=== PATIENT | female | born 1985 | race African-American/Black ===

== ENCOUNTER 2018-06-28 15:36 | Emergency (ER) | END 2018-06-28 18:15 | disposition home or self-care (01) ==

== ENCOUNTER 2018-11-19 15:47 | Emergency (ER) | payer BC ==
[~2018-11-19] VITALS: Ht 165.1 cm; Wt 67.9 kg
[~2018-11-19 15:47] MED LIST: HYDR-4011 PO; IBUP-1542 PO; METR500T PO
[2018-11-19 15:53] VITALS: Ht 165.1 cm; Wt 67.9 kg
--- NOTE | 2018-11-19 18:25 | ERD ---
ER Documentation Chief Complaint Chief Complaint cough, runny nose, fever & body aches x1wk HPI 33-year-old female with no past medical surgical history who presents to ED for evaluation of cough, runny nose, fever and body aches for 1 week. Cough is nonproductive. Patient's was seen at her [facility] noticed with mild respiratory distress with a temperature of 101 and sent to ED further evaluation to rule out underlying bacterial infection. 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 She otherwise denies chest pain, shortness of breath, dyspnea, nausea vomiting, abdominal pain, urinary symptoms. At time of evaluation patient is nontoxic-appearing, speaking in full sentences. Triage vital signs notable for temperature of 100.7 with a pulse of 100. ROS All systems reviewed and are negative except as per history of present illness. Medications Home Meds Active Scripts Acetaminophen* (Tylophen*) 500 Mg Capsule, 1 CAP PO Q6H PRN for PAIN AND OR ELEVATED TEMP, #20 CAP Prov:JUAN COBIAN PA-C 11/19/18 Hydrocodone/Acetaminophen ([place] 5-325 Tablet) 1 Each Tablet, 1 TAB PO Q6H PRN for PAIN, #15 TAB Prov:AME SHEIKH DO 06/28/18 Ibuprofen* (Ibuprofen*) 600 Mg Tablet, 600 MG PO Q6H PRN for PAIN, #30 TAB Prov:AME SHEIKH DO 06/28/18 Metronidazole* (Flagyl*) 500 Mg Tablet, 500 MG PO BID for bacterial vaginosis for 7 Days, #14 TAB Prov:AME SHEIKH DO 06/28/18 Allergies Allergies: Coded Allergies: sulfamethoxazole (Verified Allergy, Mild, swelling neck, 11/19/18) trimethoprim (Verified Allergy, Mild, swelling neck, 11/19/18) PMhx/Soc History of Surgery: Yes (, R breast sx) Hx Alcohol Use: Yes Hx Substance Use: No Hx Tobacco Use: Yes Smoking Status: Current some day smoker FmHx Family History: No diabetes, No coronary disease, No other Physical Exam Vitals Vital Signs Date Temp Pulse Resp B/P (MAP) Pulse Ox O2 O2 Flow FiO2 Time Delivery Rate 11/19/18 100.7 100 18 118/60 97 15:53 (79) Physical Exam I have reviewed the triage vital signs. Const: Well nourished, well developed, appears stated age Eyes: PERRL, no conjunctival injection HENT: NCAT, Neck supple without meningismus CV: RRR, Warm, well-perfused extremities RESP: few scattered rales, Unlabored respiratory effort GI: soft, non-tender, non-distended, no masses MSK: No gross deformities appreciated Skin: Warm, dry. No rashes Neuro: grossly non focal Psych: Appropriate mood and affect. Procedures/MDM The patient's clinical presentation is very consistent with an acute viral syndrome. Doubt etiology warranting further emergency department management. No evidence of pneumonia as xray of chest without consolidation. The patient is well-appearing without respiratory distress. Normal oxygen saturation. No indication for Tamiflu. The patient does not exhibit any clinical signs or symptoms concerning for serious bacterial infection or systemic illness. Based on history and clinical exam findings the patient does not appear to have evidence of pneumonia, strep pharyngitis, urinary tract infection, bacteremia, sepsis, or meningitis. For these reasons I do not believe it is necessary to obtain laboratory testing or diagnostic imaging. I believe it would be appropriate for symptom control, and close outpatient primary care follow-up. We discussed follow up with the patient's primary care doctor within 24 to 48 hours as needed. We also discussed return to the emergency room for worsening symptoms or worsening condition. DISPOSITION PLAN: We discussed follow up with the patient's primary care doctor within 24 to 48 hours. Patient counseled regarding my diagnostic impression and care plan. Prior to discharge all questions answered. Pt agrees with treatment plan and understands strict return precautions. Precautionary instructions provided including instructions to return to the ER if not improving or for any worsening or changing symptoms or concerns. Departure Diagnosis: Primary Impression: Influenza-like symptoms Condition: Stable JUAN COBIAN PA-C Nov 19, 2018 18:25
[2018-11-19] MEDS ORDERED: ACET500C5 PO (19:00)
[2018-11-19] MEDS ORDERED: PHEN118L PO (19:18)
[2018-11-19 19:22] VITALS: BP 122/65; PULSE 92; RESP 18
== END 2018-11-19 19:23 | disposition home or self-care (01) ==
LOC: FTE 15:47
DX: R05 Cough (principal); R09.89 Other specified symptoms and signs involving the circulatory and respiratory systems; R50.9 Fever, unspecified; F17.210 Nicotine dependence, cigarettes, uncomplicated
CPT/HCPCS: 71046